=== PATIENT | female | born 1985 | race African-American/Black ===

== ENCOUNTER 2020-04-04 23:28 | Emergency (ER) | payer SELFPAY ==
[~2020-04-04] VITALS: Ht 154.9 cm; Wt 102.0 kg
[2020-04-05] MEDS ORDERED: methylPREDNISolone SOD SUCC PF 125 MG/2 ML VIAL. IV ONE
[2020-04-05] MEDS ORDERED: EPINEPHrine 1 MG/ML VIAL IM ONE
[2020-04-05] MEDS ORDERED: diphenhydrAMINE 50 MG/ML VIAL IV ONE
[2020-04-05] MEDS ORDERED: FAMOTIDINE 20 MG/2 ML VIAL IVP ONE
[2020-04-05] MEDS ORDERED: AMOX500C PO (00:25)
[2020-04-05] MEDS ORDERED: HYDR-3164 PO (00:25)
--- NOTE | 2020-04-05 00:26 | PHYS DOC ---
Past Medical History Past Medical History: No Pertinent History Additional Past Medical Histor: GESTATIONAL DIABETES Past Surgical History: Smoking Status: Current Every Day Smoker Alcohol Use: None General Adult EDM: Chief Complaint: DENTAL PROBLEM HPI: HPI: The history was obtained from the patient. Patient is a 35-year-old female with PMH gestational diabetes who presents with a chief complaint of dental pain. Patient states she is had progressive right-sided dental pain for the past 3 days. States her right most posterior upper and lower molars are painful. She states it hurts to chew on that side. Denies any recent dental procedures. Denies any trauma to the teeth. She denies any changes to her voice. Denies any pain with swallowing. Denies any limitations in her head and neck range of motion. Has not had antibiotics recently. States that she recently moved to the area and does not have dental care. States she has tried Tylenol Extra Strength with minimal relief. Denies any drainage in the mouth. Denies any pain with opening her mouth. No other complaints. Review of Systems: Review of Systems: Constitutional: Denies fever or chills. [] Eyes: Denies change in visual acuity. [] HENT: Positive for dental pain Respiratory: Denies cough or shortness of breath. [] Cardiovascular: Denies chest pain or edema. [] GI: Denies abdominal pain, nausea, vomiting, bloody stools or diarrhea. [] : Denies dysuria. [] Musculoskeletal: Denies back pain or joint pain. [] Integument: Denies rash. [] Neurologic: Denies headache, focal weakness or sensory changes. [] Endocrine: Denies polyuria or polydipsia. [] Lymphatic: Denies swollen glands. [] Psychiatric: Denies depression or anxiety. [] Heart Score: Risk Factors: Risk Factors: DM, Current or recent (<one month) smoker, HTN, HLP, family history of CAD, obesity. Risk Scores: Score 0 - 3: 2.5% MACE over next 6 weeks - Discharge Home Score 4 - 6: 20.3% MACE over next 6 weeks - Admit for Clinical Observation Score 7 - 10: 72.7% MACE over next 6 weeks - Early Invasive Strategies Current Medications: Current Medications Medications (Trade) Dose Ordered Sig/Rachid Start Time Stop Time Status Last Admin Dose Admin Diphenhydramine HCl (Benadryl) 50 mg 1X ONCE 9/11/20 00:00 04/05/20 00:01 UNV Epinephrine HCl (Adrenalin) 0.3 mg 1X ONCE 04/05/20 00:00 04/05/20 00:01 UNV Famotidine (Pepcid Vial) 20 mg 1X ONCE 04/05/20 00:00 04/05/20 00:01 UNV Methylprednisolone Sodium Succinate (SOLU-Medrol 125MG VIAL) 125 mg 1X ONCE 04/05/20 00:00 04/05/20 00:01 UNV Allergies: Allergies: Allergies Coded Allergies Type Severity Reaction Last Updated Verified latex Allergy Intermediate 04/04/20 Yes Physical Exam: PE: Constitutional: Well developed, well nourished, no acute distress, non-toxic appearance. [] HENT: Normocephalic, atraumatic, bilateral external ears normal, oropharynx moist, no oral exudates, nose normal. No dysphonia. No trismus. No apical abscess visualized to the right posterior molars. No tonsillar swelling or exudate bilaterally. No uvular deviation. Multiple dental caries appreciated. Eyes: PERRLA, EOMI, conjunctiva normal, no discharge. [] Neck: Normal range of motion, no tenderness, supple, no stridor. [] Cardiovascular:Heart rate regular rhythm, no murmur [] Lungs & Thorax: Bilateral breath sounds clear to auscultation [] Abdomen:soft, no tenderness, no masses, no pulsatile masses. [] Skin: Warm, dry, no erythema, no rash. [] Back: No tenderness, no CVA tenderness. [] Extremities: No tenderness, no cyanosis, no clubbing, ROM intact, no edema. [] Neurologic: Alert and oriented X 3, normal motor function, normal sensory function, no focal deficits noted. [] Psychologic: Affect normal, judgement normal, mood normal. [] Current Patient Data: Vital Signs: Vital Signs Date Time Temp Pulse Resp B/P (MAP) Pulse Ox O2 Delivery O2 Flow Rate FiO2 04/04/20 23:44 98.7 72 16 148/70 (96) 98 Room Air 98.7 EKG: EKG: [] Radiology/Procedures: Radiology/Procedures: [] Course & Med Decision Making: Course & Med Decision Making Pertinent Labs and Imaging studies reviewed. (See chart for details) [] Patient is a 35-year-old female presents with chief complaint of dental pain x3 days. Vital signs unremarkable. Exam reveals no drainable fluid collection. I do feel is reasonable to give her a short course of amoxicillin and pain medicine for home. Advanced imaging will be deferred as the patient shows no si gns of toxicity and has no clinical features concerning for deep space infection. She was instructed to follow-up with her dentist in the next week. Return precautions discussed and understood. Stable for discharge home. Eber Disclaimer: Eber Disclaimer: This electronic medical record was generated, in whole or in part, using a voice recognition dictation system. Departure Departure Impression: Primary Impression: Tooth ache Disposition: 01 HOME, SELF-CARE Condition: STABLE Referrals: NO PCP (PCP) Patient Instructions: Dental Abscess, Dental Caries Additional Instructions: Please follow-up with your dentist in the next week. Please follow-up with your primary care physician in the next 2 to 3 days. [facility] [address] [place] [address] [facility] [address] [place] [address] [facility] [address] [facility] [place] [address] [facility] [address] [place] [address] [facility] [address] [place] [address] [facility] [address] [place] [address] [facility] [address] [place] [address] [facility] [address] [place] [address] [facility] [address] [place] [address] [facility] [address] [place] [address] Scripts Hydrocodone/Apap 5-325 (NORCO 5-325 TABLET) 1 Each Tablet 1-2 EACH PO PRN Q6HRS PRN for PAIN, #10 as needed for pain Prov: IMTIAZ ZHANG DO 04/05/20 Amoxicillin (AMOXICILLIN) 500 Mg Capsule 1 CAP PO BID for 10 Days, #20 CAP Prov: IMTIAZ ZHANG DO 04/05/20 Justicifation of Admission Dx: Justifications for Admission: Justification of Admission Dx: N/A IMTIAZ ZHANG DO Apr 05, 2020 00:26
[2020-04-05 00:43] VITALS: BP 155/72
[2020-04-05] MEDS ORDERED: AMOXICILLIN 250 MG CAPSULE. PO ONE (01:00)
[2020-04-05] MEDS ORDERED: HYDROcodone/APAP 7.5/325MG 1 TAB TABLET PO ONE (01:00)
== END 2020-04-05 00:45 | disposition home or self-care (01) ==
LOC: ER 23:28
DX: K08.89 Other specified disorders of teeth and supporting structures (principal); F17.200 Nicotine dependence, unspecified, uncomplicated; Z91.040 Latex allergy status
CPT/HCPCS: 99283

== ENCOUNTER 2020-11-19 11:11 | Observation (INO) | payer MEDICAID ==
[~2020-11-19 11:11] MED LIST: AMOX500C PO; HYDR-3164 PO
[2020-11-19] MEDS ORDERED: IV RINGERS,LACTATED 1000ML 1,000 ML IV SCH (12:00)
[2020-11-19 13:13] LABS: BILIRUBIN,URINE NEGATIVE (NEG); CLARITY,URINE CLEAR; COLOR,URINE YELLOW; NITRITE,URINE NEGATIVE (NEG); PH,URINE 6.5 (<5.0-8.0); PROTEIN,URINE NEGATIVE (NEG-TRACE); UROBILINOGEN,URINE 0.2 mg/dL (0.2 mg/dL)
[2020-11-19 13:26] LABS: BARBITURATES NEG (NEG); BENZODIAZEPINES NEG (NEG); CANNABINOIDS POS (NEG); COCAINE NEG (NEG); METHADONE NEG (NEG); OPIATES NEG (NEG); PHENCYCLIDINE NEG (NEG)
[2020-11-19 13:28] LABS: AMPHETAMINE/METHAMPHETAMINE NEG (NEG); BACTERIA,URINE FEW /HPF (0-FEW)
[2020-11-19 13:29] LABS: RBC,URINE OCC /HPF (0-2)
== END 2020-11-19 14:00 | disposition home or self-care (01) ==
LOC: MERGE 11:11 → 3 SO LND 11:11
PROVIDERS: ADMIT Obstetrics & Gynecology; ATTEND Obstetrics & Gynecology
DX: O62.9 Abnormality of forces of labor, unspecified (principal); Z3A.35 35 weeks gestation of pregnancy; Z79.899 Other long term (current) drug therapy
CPT/HCPCS: 59025; 80307; 81001; G0378; G0379

== ENCOUNTER 2020-11-20 07:43 | Inpatient (IN) | payer SELFPAY ==
[~2020-11-20] VITALS: Ht 156.2 cm; Wt 116.6 kg
[2020-11-20] MEDS ORDERED: LIDOCAINE 1% PF 30 ML VIAL. INJ PRN (08:15)
[2020-11-20] MEDS ORDERED: OXYTOCIN 30 UNIT/500 ML PREMIX 500 ML IV PRN ×3 (08:15→17:45)
[2020-11-20] MEDS ORDERED: TERBUTALINE 1 MG/ML VIAL. SQ PRN (08:15)
[2020-11-20] MEDS ORDERED: 0.9 % SODIUM CHLORIDE 10 ML DISP.SYRIN. IV PRN ×2 (08:15→17:45)
[2020-11-20] MEDS ORDERED: PENICILLIN G K 5,000,000 UNIT in IV DEXTROSE 5% 100ML 100 ML IV ONE (09:00)
[2020-11-20] MEDS: IV RINGERS,LACTATED 1000ML 1,000 ML IV SCH ×2 (09:11→12:53)
[2020-11-20 09:19] LABS: BASO % 0 % (0-3); EOS # 0.2 x10^3/uL (0.0-0.7); EOS % 2 % (0-3); HEMATOCRIT 30.9 % (36.0-47.0); HEMOGLOBIN 9.8 g/dL (12.0-15.5); LYMPH % 17 % (24-48); MEAN CORPUSCULAR HEMOGLOBIN 23 pg (25-35); MEAN CORPUSCULAR HGB CONC 32 g/dL (31-37); MEAN CORPUSCULAR VOLUME 71 fL (79-100); MONO # 0.6 x10^3/uL (0.0-1.1); MONO % 5 % (0-9); NEUT % 76 % (31-73); PLATELET COUNT 322 x10^3/uL (140-400); RED BLOOD COUNT 4.34 x10^6/uL (3.50-5.40); RED CELL DISTRIBUTION WIDTH 19.6 % (11.5-14.5); WHITE BLOOD COUNT 11.8 x10^3/uL (4.0-11.0)
--- NOTE | 2020-11-20 09:57 | PDOC1 ---
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 The pt was confirmed ruptured. The pt presented yesterday with ctxs. Her cervical exam remained unchanged. She has had few ctxs since that visit. She experienced LOF this am around 6:45 am . She has had few ctxs since her PPROM. She has had only one visit. This was at [facility] where an u/s was performed around 22wks. She was sent to by [facility] due to difficulties obtaining insurance, but could not get an appt soon enough. The pt has had 7 including two sets of twins, but her last delivery was a C/S because the baby was in breech position. This C/S was performed in [place]. PMH: Denies PSH: Lisbet Lee, C/S x 1 Meds: None All: Latex OBHx: x 7, C/S x 1 SH: no tob, no EtOH FH: noncontributory Medications: Meds: Current Medications Medications (Trade) Dose Ordered Sig/Rachid Route PRN Reason Start Time Stop Time Status Last Admin Dose Admin Ringer's Solution 1,000 ml @ 125 mls/hr Q8H IV 11/20/20 08:15 11/20/20 09:11 Penicillin G Potassium [id number] unit/Dextrose 100 ml @ 100 mls/hr 1X ONCE IV 11/20/20 09:00 11/20/20 09:59 11/20/20 09:11 Allergies: Coded Allergies: latex (Verified Allergy, Intermediate, 04/04/20) itching and "puffy" Physical Exam: PE: GENERAL: No apparent distress. Alert and oriented. HEENT: Head normocephalic, atraumatic. NECK: Supple LUNGS: Clear to auscultation. HEART: RRR, S1, S2 present, pulses intact ABDOMEN: Soft, positive bowel sounds. EXTREMITIES: No cyanosis or edema. NEUROLOGIC: Normal speech, normal tone PSYCHIATRIC: Normal affect, normal mood. SKIN: No ulceration. FHT: 120s +acels/no decels/mLTV [place]: 10 min SVE: 3/50/-3 Labs: Laboratory Tests Test 11/20/20 08:30 11/20/20 08:38 White Blood Count 11.8 x10^3/uL (4.0-11.0) H Red Blood Count 4.34 x10^6/uL (3.50-5.40) Hemoglobin 9.8 g/dL (12.0-15.5) L Hematocrit 30.9 % (36.0-47.0) L Mean Corpuscular Volume 71 fL (79-100) L Mean Corpuscular Hemoglobin 23 pg (25-35) L Mean Corpuscular Hemoglobin Concent 32 g/dL (31-37) Red Cell Distribution Width 19.6 % (11.5-14.5) H Platelet Count 322 x10^3/uL (140-400) Neutrophils (%) (Auto) 76 % (31-73) H Lymphocytes (%) (Auto) 17 % (24-48) L Monocytes (%) (Auto) 5 % (0-9) Eosinophils (%) (Auto) 2 % (0-3) Basophils (%) (Auto) 0 % (0-3) Neutrophils # (Auto) 9.0 x10^3/uL (1.8-7.7) H Lymphocytes # (Auto) 2.0 x10^3/uL (1.0-4.8) Monocytes # (Auto) 0.6 x10^3/uL (0.0-1.1) Eosinophils # (Auto) 0.2 x10^3/uL (0.0-0.7) Basophils # (Auto) 0.0 x10^3/uL (0.0-0.2) Platelet Estimate Pending SARS-CoV-2 Antigen (Rapid) Negative (NEGATIVE) Laboratory Tests 11/20/20 08:30 Laboratory Tests 11/20/20 08:30 Assessment & Plan: A/P 35y C8U1-5-3-77 @ 35.3 by 22wk u/s (per pt) 1.) PPROM will augment if labor does not progress since >34wks 2.) AMA no genetic testing 3.) Prev C/S x 1 desires TOLAC 4.) cHTN BPs yesterday, high nml, first BP today mild 5.) Scant care 6.) Fetus cat I FHT, BMTZ ordered 7.) GBS unk on PCN VON CHRISTIAN MD Nov 20, 2020 09:57
[2020-11-20] MEDS ORDERED: BETAMET ACET&NA PHOS 30 MG/5 ML VIAL. IM ONE (10:00)
[2020-11-20 10:43] LABS: HYPOCHROMIA PRESENT; MICROCYTOSIS PRESENT; PLT ESTIMATE ADEQUATE (ADEQUATE); POLYCHROMASIA PRESENT
[2020-11-20 12:56] VITALS: BP 155/87
[2020-11-20] MEDS ORDERED: PENICILLIN G K 2,500,000 UNIT in IV DEXTROSE 5% 50 ML IV SCH (13:00)
[2020-11-20] MEDS ORDERED: L&D EPIDURAL SYRINGE 50 ML ONE ×2 (13:05→16:22)
[2020-11-20] MEDS ORDERED: fentaNYL PF VIAL 100 MCG/2 ML VIAL ONE (13:05)
[2020-11-20] MEDS ORDERED: ROPIVacaine 0.2% PF 10 ML VIAL. ONE ×3 (13:05→17:18)
[2020-11-20] MEDS ORDERED: L&D EPIDURAL 50 ML SYRINGE. ONE (14:00)
[2020-11-20 17:11] LABS: BILIRUBIN,URINE NEGATIVE (NEG); CLARITY,URINE CLEAR; COLOR,URINE YELLOW; NITRITE,URINE NEGATIVE (NEG); PH,URINE 7.5 (<5.0-8.0); PROTEIN,URINE NEGATIVE (NEG-TRACE); UROBILINOGEN,URINE 0.2 mg/dL (0.2 mg/dL)
[2020-11-20 17:13] LABS: BARBITURATES NEG (NEG); BENZODIAZEPINES NEG (NEG); CANNABINOIDS POS (NEG); COCAINE NEG (NEG); METHADONE NEG (NEG); OPIATES NEG (NEG); PHENCYCLIDINE NEG (NEG)
[2020-11-20 17:15] LABS: BACTERIA,URINE 0 /HPF (0-FEW); RBC,URINE 0 /HPF (0-2); WBC,URINE OCC /HPF (0-4)
[2020-11-20 17:18] LABS: AMPHETAMINE/METHAMPHETAMINE NEG (NEG)
[2020-11-20] MEDS ORDERED: MAG HYDROX/ALUMINUM HYD/SIMETH 30 ML ORAL.SUSP PO PRN (17:45)
[2020-11-20] MEDS ORDERED: MMR per PROTOCOL. MC PRN (17:45)
[2020-11-20] MEDS ORDERED: ZOLPIDEM 5 MG TABLET. PO PRN (17:45)
[2020-11-20] MEDS ORDERED: diphenhydrAMINE HCL 25 MG CAPSULE PO PRN (17:45)
[2020-11-20] MEDS ORDERED: BENZOCAINE 20% TOPICAL AEROSOL SPRAY 57GM CAN. TP PRN (17:45)
[2020-11-20] MEDS ORDERED: TDaP (Adacel) per PROTOCOL. MC PRN (17:45)
[2020-11-20] MEDS ORDERED: ACETAMINOPHEN 325 MG TABLET. PO PRN (17:45)
[2020-11-20] MEDS ORDERED: MAGNESIUM HYDROXIDE 2,400 MG/30 ML ORAL.SUSP. PO PRN (17:45)
[2020-11-20] MEDS ORDERED: PHENYLEPH/MINERAL OIL/PETROLAT RECTAL OINTMENT TUBE. RC PRN (17:45)
[2020-11-20] MEDS ORDERED: SIMETHICONE 80 MG TAB.CHEW PO PRN (17:45)
[2020-11-20] MEDS ORDERED: HYDROCORTISONE 1% TOPICAL OINTMENT 30GM TUBE. TP PRN (17:45)
[2020-11-20] MEDS ORDERED: oxyCODONE/APAP 5/325 1 TAB TABLET PO PRN (17:45)
--- NOTE | 2020-11-20 17:52 | PDOC ---
VAGINAL DELIVERY DATE DATE: 11/20/20 TIME: 17:50 TIME Patient delivered a viable male infant over intact perineum at 1737. Wt 6 lb 8.1 oz. Apgars 8/9. Placenta delivered spontaneously, intact with 3VC. No lacerations noted. Good hemostasis noted. 20 U of Pit given with IVF. EBL 200cc. WEIGHT Weight [ ] VON CHRISTIAN MD Nov 20, 2020 17:52
[2020-11-20] MEDS: IBUPROFEN 400 MG TABLET. PO PRN (20:04)
[2020-11-20 20:05] VITALS: BP 144/75
[2020-11-20 21:18] VITALS: BP 154/78
[2020-11-21 04:34] VITALS: BP 146/75
[2020-11-21 04:49] LABS: RED BLOOD COUNT 3.87 x10^6/uL (3.50-5.40); WHITE BLOOD COUNT 18.4 x10^3/uL (4.0-11.0)
[2020-11-21 07:15] VITALS: BP 161/76
[2020-11-21] MEDS: FERROUS SULFATE 325 MG TABLET. PO SCH ×2 (08:14→18:37)
[2020-11-21] MEDS: DOCUSATE SODIUM 100 MG CAPSULE. PO PRN ×2 (08:14→18:37)
[2020-11-21] MEDS: IBUPROFEN 400 MG TABLET. PO PRN ×2 (08:15→18:38)
[2020-11-21 08:19] VITALS: BP 126/69
[2020-11-21] MEDS ORDERED: PRENATAL MULTIVITAMIN TABLET. PO SCH (09:00)
--- NOTE | 2020-11-21 09:35 | PDOC ---
CLINICAL DIETICIAN PROGRESS NOTE Date of Service: DATE: 11/21/20 TIME: 09:34 Subjective: Pt with good pain control. Kalee PO. Voiding. Minimal lochia. Denies LOPEZ, changes in vision, or abd pain. Objective: Vital Signs: Vital Signs Date Time Temp Pulse Resp B/P (MAP) Pulse Ox O2 Delivery O2 Flow Rate FiO2 11/20/20 12:56 97.9 77 20 155/87 (109) 95 97.9 11/20/20 20:05 Room Air Vital Signs Date Time Temp Pulse Resp B/P (MAP) Pulse Ox O2 Delivery O2 Flow Rate FiO2 11/21/20 08:19 68 126/69 (88) 11/21/20 07:15 97.6 18 96 Room Air 97.6 Labs: Laboratory Tests Test 11/20/20 16:30 11/21/20 04:26 Urine Collection Type Unknown Urine Color Yellow Urine Clarity Clear Urine pH 7.5 (<5.0-8.0) Urine Specific [place] 1.015 (1.000-1.030) Urine Protein Negative mg/dL (NEG-TRACE) Urine Glucose (UA) Negative mg/dL (NEG) Urine Ketones (Stick) 40 mg/dL (NEG) Urine Blood Negative (NEG) Urine Nitrite Negative (NEG) Urine Bilirubin Negative (NEG) Urine Urobilinogen Dipstick 0.2 mg/dL (0.2 mg/dL) Urine Leukocyte Esterase Negative (NEG) Urine RBC 0 /HPF (0-2) Urine WBC Occ /HPF (0-4) Urine Squamous Epithelial Cells Few /LPF Urine Bacteria 0 /HPF (0-FEW) Urine Mucus Slight /LPF Urine Opiates Screen Neg (NEG) Urine Methadone Screen Neg (NEG) Urine Barbiturates Neg (NEG) Urine Phencyclidine Screen Neg (NEG) Urine Amphetamine/Methamphetamine Neg (NEG) Urine Benzodiazepines Screen Neg (NEG) Urine Cocaine Screen Neg (NEG) Urine Cannabinoids Screen Pos (NEG) Urine Ethyl Alcohol Neg (NEG) White Blood Count 18.4 x10^3/uL (4.0-11.0) H Red Blood Count 3.87 x10^6/uL (3.50-5.40) Hemoglobin 9.0 g/dL (12.0-15.5) L Hematocrit 28.0 % (36.0-47.0) L Mean Corpuscular Volume 72 fL (79-100) L Mean Corpuscular Hemoglobin 23 pg (25-35) L Mean Corpuscular Hemoglobin Concent 32 g/dL (31-37) Red Cell Distribution Width 19.0 % (11.5-14.5) H Platelet Count 310 x10^3/uL (140-400) Laboratory Tests 11/21/20 04:26 Laboratory Tests 11/21/20 04:26 Physical Exam: GENERAL: No apparent distress. Alert and oriented. HEENT: Head normocephalic, atraumatic. NECK: Supple LUNGS: Clear to auscultation. HEART: RRR, S1, S2 present, pulses intact ABDOMEN: Soft, positive bowel sounds. EXTREMITIES: No cyanosis or edema. NEUROLOGIC: Normal speech, normal tone PSYCHIATRIC: Normal affect, normal mood. SKIN: No ulceration. FFNT below umb No C/C/E Assessment & Plan: A/P 35y Q1A5-7-2-56 PPD #1 s/p 1.) PO doing well 2.) cHTN BPs nml to mild to severe, has not required tx, no s/s of preeclampsia 3.) Hgb 9.8 -> 9.0 4.) Cont PP care VON CHRISTIAN MD Nov 21, 2020 09:35
--- NOTE | 2020-11-21 10:31 | NUR ---
SS following up with referral regarding mother and infant UDS positive for THC. Mother has no custody of ten other children." SS reviewed mother and infant chart and discussed with RN. Mother and UDS positive for THC. SS met with mother to discuss circumstances surrounding the referral. Mother reported that she recently moved to [address] [place] [id number] from [place], [place]. She reported that she moved from [place] to find father of . Mother is currently living with infants paternal aunt. She reported that paternal grandmother is involved as well and she has good family support and transportation. Mother reported that being a single mother in [place] was difficult and she could not afford to keep all of her children and be able to provide them what they need. She reported that her sister voluntarily took guardianship of eight of the children. She reported that the other two children live with there biological father by choice. She reported that she used THC due to nausea and vomiting to help her eat. She reported that she has all needed supplies and car seat for . Med Assist aiding in completing Medicaid applications. Appt's being scheduled at [facility] [place], [place]. DCF hotline report made for THC. Intake#[id number]. RN notified.
[2020-11-21 12:15] VITALS: BP 143/65
[2020-11-21 16:39] VITALS: BP 124/58
[2020-11-21 21:00] VITALS: BP 134/67
[2020-11-22 06:15] VITALS: BP 157/82
[2020-11-22 08:30] VITALS: BP 136/73
[2020-11-22] MEDS ORDERED: IBUP-1060 PO (09:21)
[2020-11-22] MEDS ORDERED: DOCU-109 PO (09:21)
[2020-11-22] MEDS ORDERED: FERR325T14 PO (09:21)
--- NOTE | 2020-11-22 09:54 | PDOC ---
ACCOUNTS RECEIVABLE ADMINISTRATOR PROGRESS NOTE Date of Service: DATE: 11/22/20 TIME: 09:54 Subjective: Pt with good pain control. Kalee PO. Voiding. Minimal lochia. Denies LOPEZ, changes in vision, or abd pain. Objective: Vital Signs: Vital Signs Date Time Temp Pulse Resp B/P (MAP) Pulse Ox O2 Delivery O2 Flow Rate FiO2 11/21/20 07:15 97.6 76 18 161/76 (104) 96 Room Air 97.6 Vital Signs Date Time Temp Pulse Resp B/P (MAP) Pulse Ox O2 Delivery O2 Flow Rate FiO2 11/22/20 08:30 98.0 81 18 136/73 (94) 95 Room Air 98.0 Physical Exam: GENERAL: No apparent distress. Alert and oriented. HEENT: Head normocephalic, atraumatic. NECK: Supple LUNGS: Clear to auscultation. HEART: RRR, S1, S2 present, pulses intact ABDOMEN: Soft, positive bowel sounds. EXTREMITIES: No cyanosis or edema. NEUROLOGIC: Normal speech, normal tone PSYCHIATRIC: Normal affect, normal mood. SKIN: No ulceration. FFNT below umb No C/C/E Assessment & Plan: A/P 35y M3Q5-2-4-17 PPD #2 s/p 1.) PO doing well 2.) cHTN BPs nml to mild and one severe since delivery, has not required tx, no s/s of preeclampsia 3.) Hgb 9.8 -> 9.0 4.) D/c home VON CHRISTIAN MD Nov 22, 2020 09:54
[2020-11-22] MEDS: IBUPROFEN 400 MG TABLET. PO PRN (11:26)
[2020-11-22] MEDS ORDERED: DIPH,PERTUSS(ACELL),TET VAC/PF 0.5 ML SYRINGE. VAX IM ONE (14:30)
[2020-11-22 15:05] VITALS: BP 137/75
--- NOTE | 2020-11-22 17:45 | DS ---
DATE OF DISCHARGE: 11/22/2020 ADMISSION DIAGNOSES: 1. Intrauterine at 35 weeks and 3 days by 22-week ultrasound. 2. Premature rupture of membranes. 3. Advanced maternal age. 4. Previous x 1, desires trial of labor. 5. Chronic hypertension. 6. Scant care. 7. GBS unknown. DISCHARGE DIAGNOSES: 1. Intrauterine at 35 weeks and 3 days by 22-week ultrasound. 2. Premature rupture of membranes. 3. Advanced maternal age. 4. Previous x 1, desires trial of labor. 5. Chronic hypertension. 6. Scant care. 7. GBS unknown. PROCEDURE: Vaginal after . BRIEF HOSPITAL COURSE: The patient is a 35-year-old 9, para 8-0-0-10 who presented to Labor and Delivery at 35 weeks and 3 days by 22-week ultrasound with leakage of fluid. The patient was confirmed ruptured. The patient had presented the previous day with contractions. At that visit, her cervical exam remained unchanged. When the patient presented today, she had very few contractions. The patient ultimately was started on augmentation with Pitocin. The patient was also given a dose of betamethasone due to her status and she was also started on penicillin for her GBS unknown status. The patient had had one visit at [facility] where she said she had her dating ultrasound at 22 weeks. She was referred to [facility], but was unable to have any visits with them. The patient has had 7 vaginal deliveries, including a set of twins, but her last delivery in [place] was a due to the baby being in breech position. The patient ultimately delivered by vaginal delivery. See delivery note for full detail. By day #2, the patient was meeting all discharge criteria and was subsequently discharged home. Of note, the patient had normal mild and severe range blood pressures throughout the hospital course. The patient never required any treatment for her severe range blood pressures because they spontaneously resolved. The patient also had a hemoglobin of 9.8 on admission and after delivery, was found to be 9.0. DISCHARGE INSTRUCTIONS: The patient was told not to lift anything greater than 20 pounds, have pelvic rest for 6 weeks. The patient is to call if she had fever, chills, nausea and vomiting, headache, changes in vision, abdominal pain, or any additional questions or concerns. FOLLOWUP APPOINTMENT: The patient was to [place]'s [place] [facility] [place]. DISCHARGE MEDICATIONS: The patient was given a prescription for Motrin 800 mg 30 pills; Colace 100 mg 30 pills and ferrous sulfate 325 mg 30 pills. MM/MAX DR: Abdon TID: [id number]
[2020-11-23 05:12] LABS: HEP B SURFACE AG Negative (Negative)
--- NOTE | 2020-11-26 16:10 | PATHOLOGY ---
[facility] Accession Number: [id number] . 01 Material submitted: . placenta - PLACENTA AND CORD . 01 Clinical history: . NPC,AMA, , PREVIOUS BABY BOY AT 15:37 ; PLACENTA AT 15:40 POST VAGINAL DELIVERY . 02 Diagnosis: 508 gram late placenta of an estimated 35 weeks 3 days gestation with attached membranes and umbilical cord: - Focal mild villous edema. (JPM:dewey; 11/26/2020) QMS 11/26/2020 1158 Local . 02 Comment: There is no evidence of an acute chorioamnionitis or villitis. There are no infarcts. (JPM:dewey; 11/26/2020) . 02 Electronically signed: . Joshua Jackson MD, Pathologist NPI- [id number] . 01 Gross description: . Labeled: Placenta Specimen received: in formalin Trimmed placental weight: 508 gm Dimensions: 15 x 14 x 2.8 cm membranes: pink-calles glistening membrane rupture: 7.5 cm from placental disc edge membrane insertion: Marginal Umbilical cord: 27 cm in length, 1.1 cm in diameter; there are no knots identified Umbilical cord insertion: paracentral, 5.1 cm from the closest placental margin Number of umbilical vessels: Three surface: meeks-blue glistening and well vascularized Maternal surface: Red-Brown and unremarkable Abnormalities: None . Blank Driller sections are submitted in 4 cassettes as follows: A1 proximal and distal umbilical cord A2 membranes, Rolled and maternal surface A3 hardware supplies sales representative peripheral placenta A4 hardware supplies sales representative central placenta with surface adjacent to umbilical cord insertion site (ML; 11/21/2020) NIKO/NIKO 11/21/2020 2215 Local . 02 Pathologist provided ICD-10: O43.893, Z37.0, Z3A.35 . 02 CPT . 019224 Specimen Comment: A courtesy copy of this report has been sent to [phone] Specimen Comment: Report sent to Performed at: [address] [facility], [place] [id number] MD Javier Hill MD Phone: [phone] Performed at: [facility] [address] [place] [id number] MD Joshua Jackson MD Phone: [phone]
== END 2020-11-22 15:38 | disposition home or self-care (01) | DRG 805 ==
LOC: 3 SO LND 07:43 → OBSVTOIN 07:43
PROVIDERS: ADMIT Obstetrics & Gynecology; ATTEND Obstetrics & Gynecology
PROC: 10E0XZZ Delivery of Products of Conception, External Approach (ICD-10-PCS; principal; 2020-11-20)
DX: O34.211 Maternal care for low transverse scar from previous cesarean delivery (principal); O60.14X0 Preterm labor third trimester with preterm delivery third trimester, not applicable or unspecified; Z37.0 Single live birth; Z3A.35 35 weeks gestation of pregnancy; O42.913 Preterm premature rupture of membranes, unspecified as to length of time between rupture and onset of labor, third trimester; Z20.822 Contact with and (suspected) exposure to COVID-19; O16.4 Unspecified maternal hypertension, complicating childbirth
CPT/HCPCS: 36415; 80307; 81001; 85025; 85027; 86592; 86703; 86762; 86850; 86900; 86901; 87070; 87340; 87426; 87653; 88307; 90471; 90715; A6258; C1755; J0702; J2540; J2590; J2795; J3010; J7060; J7120; U0003; U0005; G0378